=== PATIENT | male | born 1975 | race Caucasian/White ===

== ENCOUNTER 2017-04-17 16:27 | Emergency (ER) | payer OTHER ==
[2017-04-17 18:56] VITALS: BP 138/74
[2017-04-17] MEDS ORDERED: Lidocaine 1% MPF* 2 ML VIAL INJ ONE (19:44)
--- NOTE | 2017-04-17 19:47 | UC ---
Skin Complaint HPI - HPI Summary HPI Summary: 42 y/o male presents to the urgent care c/o lump below his chin for the past 2 week. Pt reports he shaved and one hair follicle became infected. for the past 2 dasy swelling has increasing and it painful to touch. Pain is 2/10 now with yellowish discharge. Pt denies fever, SOB, dysphagia, sore throat, chest pain, N /V/D - History of Current Complaint Chief Complaint: UCSkin Time Seen by Provider: 04/17/17 19:30 Stated Complaint: SKIN COMPLAINT Hx Obtained From: Patient Onset/Duration: Gradual Onset, Lasting Weeks - 2 weeks, Still Present Skin Exposure Onset/Duration: Weeks Ago - 2 weeks after shaving Timing: Constant Onset Severity: Mild Current Severity: Moderate Pain Intensity: 2 Pain Scale Used: 0-10 Numeric Location: Face - below the chin Character: Swelling, Redness, Raised, Painful Aggravating Factor(s): Touch Alleviating Factor(s): Cold, OTC Meds Associated Signs & Symptoms: Positive: Drainage - at times, Tenderness. Negative: Fever, Hoarseness, Throat Tightening, Red Streaks Related History: Possible Reaction to: Environmental Exposure - Allergy/Home Medications Allergies/Adverse Reactions: Allergies Allergy/AdvReac Type Severity Reaction Status Date / Time Aspirin Allergy Intermediate bloody nose Verified 04/17/17 18:56 Hydrocodone Allergy Intermediate Flushing Verified 04/17/17 18:56 Morphine Allergy Intermediate turns red Verified 04/17/17 18:56 SEASONAL ENVIRONMENTAL Allergy SNEEZE,CONGESTION, Uncoded 10/15/14 22:52 ALLERGY RUNNY NOSE, WATERY EYES Home Medications: Home Medications Ibuprofen TAB* [Advil TAB*] 400 mg PO PRN 04/17/17 [History] Review of Systems Constitutional: Negative Skin: Other - lump below his chin Eyes: Negative ENT: Negative Respiratory: Negative Cardiovascular: Negative Gastrointestinal: Negative Genitourinary: Negative Motor: Negative Neurovascular: Negative Musculoskeletal: Negative Neurological: Negative Psychological: Negative Is Patient Immunocompromised?: No All Other Systems Reviewed And Are Negative: Yes PMH/Surg Hx/FS Hx/Imm Hx Previously Healthy: Yes GI/ History: Kidney Stones - Surgical History Surgical History: Yes Surgery Procedure, Year, and Place: 2006 LEFT GROIN HERNIA WITH MESH, [facility] [place]. 1991 RUPTURED SPLEEN REPAIR AT AGE 17, [facility]. beginning 2014 repair of deviated septum - Family History Family History: Dyslipidemia - Social History Occupation: Employed Full-time Lives: With Family Alcohol Use: None Alcohol Amount: 12 or more beers a day Substance Use Type: None Substance Use Comment - Amount & Last Used: occassionally to "help" him sleep Smoking Status (MU): Former Smoker Type: Cigarettes Amount Used/How Often: 3x/week Length of Time of Smoking/Using Tobacco: >20 years Have You Smoked in the Last Year: Yes Household Exposure Type: Cigarettes - Immunization History Most Recent Influenza Vaccination: None Most Recent Tetanus Shot: 2009 Most Recent Pneumonia Vaccination: Not indicated Physical Exam Triage Information Reviewed: Yes Vital Signs: Initial Vital Signs Temp 97.2 F 04/17/17 18:51 Pulse 62 04/17/17 18:51 Resp 16 04/17/17 18:51 BP 138/74 04/17/17 18:51 Pulse Ox 100 04/17/17 18:51 - Additional Comments Vital Signs Reviewed: Yes General: well developed, well nourished male sitting in the examining table w/o any apparent distress Eye Exam: Normal Eyes: Positive: Conjunctiva Clear - PERRLA, EOMI, fundi grossly normal ENT: Positive: Normal ENT inspection, Hearing grossly normal, Pharynx normal, TMs normal Neck: Positive: Supple, Nontender, No Lymphadenopathy Respiratory: Positive: Chest non-tender, Lungs clear, Normal breath sounds, No respiratory distress Cardiovascular: Positive: RRR, No Murmur, Pulses Normal, Brisk Capillary Refill Abdomen Description: Positive: Nontender, No Organomegaly, Soft. Negative: CVA Tenderness (R), CVA Tenderness (L) Bowel Sounds: Positive: Present Musculoskeletal: Positive: Strength Intact, ROM Intact, No Edema Neurological: Positive: Alert, Muscle Tone Normal Psychological Exam: Normal Skin: Positive: small erythematous pustule that is indurated and fluctuant below the left side of chin about 1.5cm x1.0cm in size. Swollen and tender to palpation with a central yellowish crusting. Course/Dx - Course Course Of Treatment: 42 y/o male presents to the urgent care c/o lump below his chin for the past 2 week. Pt reports he shaved and one hair follicle became infected. for the past 2 dasy swelling has increasing and it painful to touch. Pain is 2/10 now with yellowish discharge. Pt denies fever, SOB, dysphagia, sore throat, chest pain, N/V/D. Hx obtained. Pt with an abcess below his left side of chin about 1.5cm x1 cm in size. I&D of abscess procedure:The procedure was explained and consent obtained. [place] protocol performed. The wound was anesthetized with 2mL of [place] 1% with good anesthesia. Sterile drape and prep were done. The fluctuant center was incised with #11 blade scalpel. A small amount of serous material was expressed . wound cultures obtained and sent to lab top r/o MRSA. The wound was probed for loculated areas and irrigated with normal saline. The wound was left open. Bacitracin topical ointment applied and wound covered with sterile dressing. The patient tolerated the procedure well. Pt Rx Bactrim PO and bacitracin topical ointment. Advised to return to the urgent care for wound check up. Pt advised fever develops and pain increase despite ABX to go immediately to the ER for further management. Pt understood and agreed with D/C instructions. Left the clinic ambulating A&OX3. - Differential Diagnoses - Skin Complaint Differential Diagnoses: Abscess, Cellulitis, Lymphadenitis, MRSA, Other - folliculitis - Diagnoses Provider Diagnoses: 1- Abscess below the left side of chin Discharge - Discharge Plan Condition: Stable Disposition: HOME Prescriptions: Bacitracin OINTMENT* 1 applic TOPICAL TID #1 tube Sulfamethox/Trimethoprim DS* [Bactrim DS 800/160 TAB*] 1 tab PO BID #19 tab Patient Education Materials: Abscess (ED) Referrals: Julius Lawton MD [Primary Care Provider] - 3 Days Additional Instructions: 1-Please take full course of antibiotic to avoid resistance. Keep wound clean and dry with a sterile dressing. Apply bacitracin topical as directed 2-. Take Ibuprofen PO q6-8hrs prn for pain or swelling. 3-If you develop fever or redness despite antibiotic please go to the ER immediately or return to the Urgent care. 4- Wound culture sent to lab, if any abnormal result you will receive a call from us.
[2017-04-17] MEDS ORDERED: Sulfamethox/Trimethoprim DS 800/160* TAB PO ONE (20:31)
== END 2017-04-17 21:05 | disposition home or self-care (01) ==
LOC: UCEAST 16:27
DX: L02.01 Cutaneous abscess of face (principal); Z87.442 Personal history of urinary calculi; Z88.6 Allergy status to analgesic agent; Z88.5 Allergy status to narcotic agent; Z87.891 Personal history of nicotine dependence
CPT/HCPCS: 10060; 87070; 87205; 99212; A9270-GY; G0463